=== PATIENT | female | born 1940 | race Caucasian/White ===

== ENCOUNTER 2017-02-04 15:46 | Emergency (ER) | payer MEDICARE, BC ==
[2017-02-04] MEDS ORDERED: POLYETHYLENE GLYCOL 3350 17 GM PACKET PO STA (16:05)
--- NOTE | 2017-02-04 16:07 | ED Physician Documentation ---
PD HPI ABD PAIN - Stated complaint Stated Complaint: CONSTIPATION - Chief complaint Chief Complaint: Abd Pain - History obtained from History obtained from: Patient (Healthy 76-year-old woman visiting from out of [place], out of her routine, drinking less fluids than usual. For several days and now feels like she is impacted today, although on my evaluation she had just had a large bowel movement and feels better.) Review of Systems Constitutional: denies: Fever, Chills GI: denies: Abdominal Pain, Vomiting, Bloody / black stool PD PAST MEDICAL HISTORY - Present Medications Home Medications: Ambulatory Orders Medication Instructions Recorded Confirmed No Known Home Medications [No 02/04/17 02/04/17 Known Home Medications] - Allergies Allergies/Adverse Reactions: Allergies Allergy/AdvReac Type Severity Reaction Status Date / Time Penicillins Allergy Rash Verified 02/04/17 16:11 Sulfa (Sulfonamide Allergy Rash Verified 02/04/17 16:11 Antibiotics) PD ED PE NORMAL - Vitals Vital signs reviewed: Yes - General General: Alert and oriented X 3, No acute distress - Abdomen Abdomen: Soft, Non tender - Neuro Neuro: Alert and oriented X 3, Normal speech - Psych Psych: Normal mood, Normal affect Results - Vitals Vitals: Vital Signs - 24 hr 02/04/17 02/04/17 15:50 16:10 Temperature 36.8 C Heart Rate 85 Respiratory 17 Rate Blood Pressure 148/85 H O2 Saturation 100 Oxygen O2 Source Room air PD MEDICAL DECISION MAKING - ED course ED course: She has a fecal impaction that has resolved on my evaluation and bowel care was advised. Departure - Departure Disposition: 01 Home, Self Care Clinical Impression: Fecal impaction Condition: Good Record reviewed to determine appropriate education?: Yes Instructions: ED Impaction Fecal Treated Comments: Take an [id number] laxative such as senna or MiraLAX on any day that you do not have a bowel movement. Discharge Date/Time: 02/04/17 16:14
[2017-02-04] MEDS ORDERED: POLYETHYLENE GLYCOL 3350 17 GM PACKET ONE (16:08)
[2017-02-04 16:10] VITALS: BP 148/85
== END 2017-02-04 16:14 | disposition home or self-care (01) ==
LOC: ED 15:46
DX: K56.41 Fecal impaction (principal)
CPT/HCPCS: 99282; 99283; A9270